=== PATIENT | male | born 1995 | race Two or more races ===

== ENCOUNTER 2019-08-01 23:48 | Emergency (ER) | payer BC ==
[~2019-08-01] VITALS: Ht 170.2 cm; Wt 56.7 kg
[2019-08-02 00:15] LABS: Basophils # (auto) 0.1 uL; Basophils % (auto) 1.5 % (0.0-2.0); Eosinophils # (auto) 0.1 uL; Eosinophils % (auto) 1.2 % (0.0-7.0); Hematocrit 45.5 % (41.0-53.0); Hemoglobin 15.8 g/dL (13.5-17.5); Lymphocytes # (auto) 1.5 uL; Lymphocytes % (auto) 24.1 % (10.0-50.0); Mean Corpuscular Hemoglobin 32.9 pg (28.0-32.0); Mean Corpuscular Hgb Conc. 34.7 g/dL (32.0-36.0); Mean Corpuscular Volume 94.8 fL (80.0-100.0); Monocytes # (auto) 0.7 uL; Monocytes % (auto) 12.1 % (0.0-12.0); Neutrophils # (auto) 3.7 uL; Neutrophils % (auto) 61.1 % (37.0-80.0); Nucleated Red Blood Cells % 0.2 %; Platelet Count (auto) 270 10^3/uL (140-450); Red Cell Distribution Width 12.6 % (11.8-14.3); White Blood Cell 6.1 10^3/uL (4.4-10.8)
[2019-08-02] MEDS ORDERED: SODIUM CHLORIDE 0.9% 1,000 ML IV ONE ×2 (00:30→02:30)
[2019-08-02 00:31] LABS: Anion Gap 6 (5-15); Blood Urea Nitrogen 19 mg/dL (7-18); Carbon Dioxide 27 mmol/L (21-32); Chloride 105 mmol/L (98-107); Glucose 101 mg/dL (74-106); Potassium 3.5 mmol/L (3.5-5.1); Sodium 138 mmol/L (136-145)
[2019-08-02 00:32] LABS: Alanine Aminotransferase 17 U/L (16-61); Albumin 4.5 g/dL (3.4-5.0); Aspartate Aminotransferase 16 U/L (15-37); Blood Alcohol < 3.0 mg/dL (0-5); Calcium 8.8 mg/dL (8.5-10.1); GFR African American 104 mL/min; GFR Non-African American 86 mL/min; Salicylate < 1.7 mg/dL (2.8-20.0)
[2019-08-02 00:33] LABS: Alkaline Phosphatase 64 U/L (45-117); Bilirubin, Total 0.7 mg/dL (0.2-1.0); Total Protein 8.2 g/dL (6.4-8.2)
[2019-08-02 00:49] LABS: Acetaminophen < 2.0 ug/mL (10-30)
[2019-08-02 01:50] LABS: Urine WBC None Seen /hpf (0 - 3)
[2019-08-02 02:10] LABS: Urine Bacteria NONE SEEN /hpf (None Seen); Urine Blood Negative /uL (Negative); Urine Specific Gravity 1.002 (1.001-1.035)
[2019-08-02 02:18] LABS: Alcohol, Urine < 3.0 mg/dL (0-5); Amphetamine Screen, Urine NEGATIVE (NEGATIVE); Barbiturate Scree,Urine NEGATIVE (NEGATIVE); Benzodiazephine Screen, Urine NEGATIVE (NEGATIVE); Cannabinoid Screen, Urine NEGATIVE (NEGATIVE); Cocaine Screen, Urine NEGATIVE (NEGATIVE); Opiate Scree,Urine NEGATIVE (NEGATIVE); Phencyclidine Screen, Urine NEGATIVE (NEGATIVE)
[2019-08-02] MEDS ORDERED: ONDANSETRON HCL 4 MG/2 ML VIAL IV ONE (02:30)
[2019-08-02] MEDS ORDERED: hydrOXYzine 25 MG TAB or CAP PO PRN (06:15)
[2019-08-02 09:22] VITALS: BP 119/71
[2019-08-02] MEDS ORDERED: buPROPion HCL 100 MG TAB PO SCH (10:00)
== END 2019-08-02 09:54 | disposition short-term general hospital (02) ==
LOC: ER 23:50
DX: R45.851 Suicidal ideations (principal); F32.9 Major depressive disorder, single episode, unspecified; F41.9 Anxiety disorder, unspecified; F12.10 Cannabis abuse, uncomplicated
CPT/HCPCS: 36415; 80053; 80307; 80320; 80329; 81001; 85025; 93005; 96374; 99285; J2405; J7030

== ENCOUNTER 2025-04-15 10:50 | Emergency (ER) | payer BC, MEDICAID ==
[~2025-04-15] VITALS: Ht 170.2 cm; Wt 67.7 kg
[2025-04-15 11:00] VITALS: TEMP 98.7; O2SAT 96
[2025-04-15] MEDS: KETOROLAC TROMETH 30 MG/ML 1ML VIAL IV ONE (11:16)
--- NOTE | 2025-04-15 11:20 | ED.PDOC ---
General HPI Comments 30 y.o male presents to the ED for a chief complaint of left sided flank pain that started this morning upon waking up. Patient describes pain as sharp, radiates to his lower abdomen and is constant with no alleviating factors. Patient denies any past hx of kidney stones, UTI's, nausea, vomiting, diarrhea, chills, dysuria, or hematuria. No medical history reported. Chief Complaint: Flank Pain Time Seen by MD: 11:03 Reviewed notes: Nurses Notes, Medications, Allergies Allergies: Coded Allergies: NO KNOWN ALLERGIES (Unverified , 08/01/19) Information Source: Patient Mode of Arrival: Ambulatory Severity: Moderate Timing: Hours Duration: Since onset Onset: Spontaneous Symptoms: None Location: (L)Flank associated signs and symptoms: Flank Pain Past Medical History PAST MEDICAL HISTORY: Anxiety, Depression Surgical History: Denies all surgeries Family History Family History: Unknown Social History Smoker: Non-Smoker Alcohol: Denies ETOH Use Drugs: Marijuana Lives In: Home Constitutional: denies: chills, diaphoresis, fatigue, fever, malaise, sweats, weakness, others EENTM: denies: blurred vision, double vision, ear bleeding, ear discharge, ear drainage, ear pain, ear ringing, eye pain, eye redness, hearing loss, mouth pain, mouth swelling, nasal discharge, nose bleeding, nose congestion, nose pain, photophobia, tearing, throat pain, throat swelling, voice changes, others Respiratory: denies: cough, hemoptysis, orthopnea, SOB at rest, shortness of breath, SOB with excertion, stridor, wheezing, others Cardiovascular: denies: chest pain, dizzy spells, diaphoresis, Dyspnea on exertion, edema, irregular heart beat, left arm pain, lightheadedness, palpitations, PND, syncope, others Gastrointestinal: denies: abdomen distended, abdominal pain, blood streaked bowels, constipated, diarrhea, dysphagia, difficulty swallowing, hematemesis, melena, nausea, poor appetite, poor fluid intake, rectal bleeding, rectal pain, vomiting, others Genitourinary: reports: flank pain; denies: burning, dysuria, frequency, hematuria, incontinence, penile discharge, penile sore, pain, testicle pain, testicle swelling, urgency, others Neurological: denies: dizziness, fainting, headache, left sided numbness, left sided weakness, numbness, paresthesia, pre-existing deficit, right sided numbness, right sided weakness, seizure, speech problems, tingling, tremors, weakness, others Musculoskeletal: denies: back pain, gout, joint pain, joint swelling, muscle pain, muscle stiffness, neck pain, others Integumetry: denies: bruises, change in color, change in hair/nails, dryness, laceration, lesions, lumps, rash, wounds, others Allergic/Immunocompromised: denies: Difficulty Healing, Frequent Infections, Hives, Itching, others Hematologic/Lymphatic: denies: anemia, blood clots, easy bleeding, easy bruising, swollen glands, others Endocrine: denies: excessive hunger, excessive sweating, excessive thirst, excessive urination, flushing, intolerance to cold, intolerance to heat, unexplained weight gain, unexplained weight loss, others Psychiatric: denies: anxiety, bipolar disorder, depression, hopeless, panic disorder, schizophrenia, sleepless, suicidal, others All Other Systems: Reviewed and Negative Physical Exam General Appearance: Moderate Distress HEENT: Normal ENT Inspection, Pharynx Normal, TMs Normal Neck: Full Range of Motion, Non-Tender, Normal, Normal Inspection Respiratory: Chest Non-Tender, Lungs Clear, No Accessory Muscle Use, No Respiratory Distress, Normal Breath Sounds Cardiovascular: No Edema, No JVD, No Murmur, No Gallop, Normal Peripheral Pulses, Regular Rate/Rhythm Breast Exam: Deferred Gastrointestinal: Diffuse, No Organomegaly, No Pulsatile Mass, Normal Bowel Sounds, Soft Genitalia: Deferred Pelvic: Deferred Rectal: Deferred Extremities: No calf tenderness, Normal capillary refill, Normal inspection, Normal range of motion, Non-tender, No pedal edema Musculoskeletal : Apperance: Normal Neurologic: Alert, 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 Was a procedure done?: No Differential Diagnosis Kidney stone (Female): N/A Kidney stone (Male): Pancreatitis, Pyelonephritis, Renal failure, Strain, Urolithiasis X-Ray, Labs, Meds, VS Vital Signs Date Time Temp Pulse Resp B/P (MAP) Pulse Ox O2 Delivery O2 Flow Rate FiO2 04/15/25 13:07 94 14 114/76 04/15/25 11:00 98.7 79 16 113/75 (88) 96 98.7 04/15/25 11:00 79 16 96 Room Air 04/15/25 10:51 98.9 96 15 138/85 97 98.9 Lab Test 04/15/25 11:44 04/15/25 11:11 Range/Units White Blood Count 11.3 H 4.4-10.8 10^3/uL Red Blood Count 4.39 L 4.5-5.90 10^6/uL Hemoglobin 13.6 13.5-17.5 g/dL Hematocrit 40.8 L 41.0-53.0 % Mean Corpuscular Volume 92.9 80.0-100.0 fL Mean Corpuscular Hemoglobin 31.0 28.0-32.0 pg Mean Corpuscular Hemoglobin Concent 33.4 32.0-36.0 g/dL Red Cell Distribution Width 12.6 11.8-14.3 % Platelet Count 299 140-450 10^3/uL Mean Platelet Volume 6.9 6.9-10.8 fL Neutrophils (%) (Auto) 79.0 37.0-80.0 % Lymphocytes (%) (Auto) 13.5 10.0-50.0 % Monocytes (%) (Auto) 6.2 0.0-12.0 % Eosinophils (%) (Auto) 0.7 0.0-7.0 % Basophils (%) (Auto) 0.6 0.0-2.0 % Neutrophils # (Auto) 8.9 H 1.6-8.6 10 ^3/uL Lymphocytes # (Auto) 1.5 0.4-5.4 10 ^3/uL Monocytes # (Auto) 0.7 0-1.3 10 ^3/uL Eosinophils # (Auto) 0.1 0-0.8 10 ^3/uL Basophils # (Auto) 0.1 0-0.2 10 ^3/uL Nucleated Red Blood Cells 0.0 % Sodium Level 139 136-145 mmol/L Potassium Level 3.5 3.5-5.1 mmol/L Chloride Level 105 98-107 mmol/L Carbon Dioxide Level 26 20-31 mmol/L Anion Gap 8 5-15 Blood Urea Nitrogen 12 9-23 mg/dL Creatinine 1.03 0.700-1.30 mg/dL Glomerular Filtration Rate Calc 100 >90 mL/min BUN/Creatinine Ratio 11.7 10.0-20.0 Serum Glucose 118 H 74-106 mg/dL Calcium Level 8.2 L 8.7-10.4 mg/dL Urine Color Light-yellow Yellow Urine Clarity Clear Clear Urine pH 6.5 5.0-9.0 Urine Specific [place] 1.018 1.001-1.035 Urine Protein Negative Negative Urine Ketones Negative Negative Urine Blood 3+ H Negative /uL Urine Nitrite Negative Negative Urine Bilirubin Negative Negative Urine Urobilinogen Normal Negative mg/dL Urine Leukocyte Esterase Negative Negative /uL Urine RBC 158 0 - 3 /hpf Urine Microscopic WBC 1 0-3 /HPF Urine Squamous Epithelial Cells Few <5 /hpf Urine Bacteria None seen None Seen /hpf Urine Glucose Normal Normal mg/dL Current Medications Medications (Trade) Dose Ordered Sig/Lee Route Start Time Stop Time Status Last Admin Ketorolac Tromethamine (Toradol Injection) 30 mg ONCE ONCE IV 04/15/25 11:15 04/15/25 11:16 DC 04/15/25 11:16 Sodium Chloride 1,000 ml @ 1,000 mls/hr Q1H ONCE IV 04/15/25 11:15 04/15/25 12:14 DC 04/15/25 11:21 Ondansetron HCl (Zofran) 4 mg ONCE ONCE IV 04/15/25 13:00 04/15/25 13:01 DC 04/15/25 13:07 Morphine Sulfate 4 mg ONCE ONCE IV 04/15/25 13:00 04/15/25 13:01 DC 04/15/25 13:07 Patient alert. Complaining of flank pain. Vitals stable. Answering questions. Urinalysis shows blood. CT scan of the abdomen does show a kidney stone. Establish intravenous access. Was given fluids. Was given pain medication. Was given Flomax. Was given Zofran. Was given Lasix. Was given prescription of Flomax Motrin. Explained to the patient. Was told to follow up with his primary care physician. Was told to come back if there is any problem. Time of 1ST Reevaluation: 11:20 Reevaluation 1ST: Unchanged Patient Education/Counseling: Diagnosis, Treatment, Prognosis Family Education/Counseling: No Family Present SEPSIS Sepsis Screen Date sepsis recognized/suspect: Apr 15, 2025 Time Sepsis recognized/suspect: 1053 Recent Procedure: No On Antibiotic Therapy: No Respiratory Rate >20: No Heart Rate >90: No Temp<36 C (96.8 F) or >38.3 C: No SBP <90 or MAP <65 mmHG: No New Acute Mental Status Change: No Is the patient on CPAP, BIPAP,: No Physician Orders Ct Ab Pel Wo Con-No Oral Or Iv (04/15/25 12:32) Furosemide Injection (Lasix Injection) (04/15/25 13:45) Tamsulosin Hydrochloride (Flomax) (04/15/25 13:45) Vital Signs Date Time Temp Pulse Resp B/P (MAP) Pulse Ox O2 Delivery O2 Flow Rate FiO2 04/15/25 13:07 94 14 114/76 04/15/25 11:00 98.7 79 16 113/75 (88) 96 98.7 04/15/25 11:00 79 16 96 Room Air 04/15/25 10:51 98.9 96 15 138/85 97 98.9 Laboratory Tests Test 04/15/25 11:44 White Blood Count 11.3 10^3/uL (4.4-10.8) H Medications Medications Dose Ordered Sig/Lee Route Start Time Stop Time Status Last Admin Dose Admin Ketorolac Tromethamine 30 mg ONCE ONCE IV 04/15/25 11:15 04/15/25 11:16 DC 04/15/25 11:16 Morphine Sulfate 4 mg ONCE ONCE IV 04/15/25 13:00 04/15/25 13:01 DC 04/15/25 13:07 Ondansetron HCl 4 mg ONCE ONCE IV 04/15/25 13:00 04/15/25 13:01 DC 04/15/25 13:07 Sodium Chloride 1,000 ml @ 1,000 mls/hr Q1H ONCE IV 04/15/25 11:15 04/15/25 12:14 DC 04/15/25 11:21 Departure 1 Departure Time of Disposition: 13:36 Impression: Primary Impression: Kidney stone Disposition: 01 HOME / SELF CARE / HOMELESS Condition: Good e-Prescriptions Ibuprofen Micronized (MOTRIN TABLET) 600 Mg Tb 600 MG PO TID PRN for 5 Days, #15 TAB *Black box warning-NSAIDS can increase risk of IN & hypertension, GI irritation, ulceration, bleed, perferation. Do not use post cardiac surgery. Use short duration/lowest effective dose. Prov: REMI MAI MD 04/15/25 Tamsulosin Hcl (Flomax) 0.4 Mg Cap 1 CAP PO DAILY for 7 Days, #7 CAP 11 Refills Prov: REMI MAI MD 04/15/25 Discharged With: Self Critical Care Note Critical Care Time?: No Stability Stability form required: No I personally scribed for REMI MAI MD ([email or web address]) on 04/15/25 at 11:20. Electronically submitted by Olena Rios ([facility]). REMI MAI MD Apr 15, 2025 11:20
[2025-04-15] MEDS: SODIUM CHLORIDE 0.9% 1,000 ML IV ONE (11:21)
[2025-04-15 12:01] LABS: Urine Protein, UAD Negative (Negative)
[2025-04-15 12:21] LABS: Hematocrit 40.8 % (41.0-53.0); Hemoglobin 13.6 g/dL (13.5-17.5); Mean Corpuscular Hemoglobin 31.0 pg (28.0-32.0); Mean Corpuscular Volume 92.9 fL (80.0-100.0); Nucleated Red Blood Cells % 0.0 %
[2025-04-15 12:31] LABS: Chloride 105 mmol/L (98-107); Sodium 139 mmol/L (136-145)
[2025-04-15 12:32] LABS: Anion Gap 8 (5-15); Carbon Dioxide 26 mmol/L (20-31)
[2025-04-15 12:38] LABS: BUN/Creatinine Ratio 11.7 (10.0-20.0); Blood Urea Nitrogen 12 mg/dL (9-23); Calcium 8.2 mg/dL (8.7-10.4); Glucose 118 mg/dL (74-106); Potassium 3.5 mmol/L (3.5-5.1)
[2025-04-15 13:07] VITALS: BP 114/76; PULSE 94; RESP 14
[2025-04-15] MEDS: ONDANSETRON HCL 4 MG/2 ML VIAL IV ONE (13:07)
[2025-04-15] MEDS: MORPHINE SULFATE 4 MG/ML SYR/VIAL IV ONE (13:07)
--- NOTE | 2025-04-15 13:12 | DVH ---
Exam: CT CT AB PEL WO CON-NO ORAL OR IV History: stone Comparison Study: None Technique: Multidetector spiral CT of the abdomen was performed from lung bases to pubic symphysis. Imaging was performed without IV contrast. Axial, coronal and sagittal multiplanar reformats were ob tained from the axial data set by the technologist. Radiation Dose : 1. Abdomen/Pelvis: CTDIvol 5.6 mGy, DLP 5.6 mGy*cm. Findings: Evaluation of solid organs is limited due to lack of intravenous contrast use. Lung Bases: No acute or significant lung base finding. Normal heart size. No pleural or pericardial effusion. Liver: The liver is normal in size. No focal lesions. Gallbladder and Biliary Tree: Unremarkable Spleen: Unremarkable Pancreas: The pancreas is grossly normal in appearance. Adrenal Glands: Unremarkable Kidneys: Tiny 1 mm stone is seen in the lower pole of the right kidney. No hydronephrosis. Bladder: Grossly unremarkable for degree of distention. Bowel: The stomach is grossly normal in appearance. Small bowel and colon are normal in caliber and d istribution. Normal appendix is visualized in the right lower quadrant without findings of appendici tis. Ascites: Absent Lymphadenopathy: No mesenteric, retroperitoneal or periportal lymphadenopathy. Abdominal Wall and Mesentery: Unremarkable. Vasculature: The visualized abdominal aorta is normal in size and caliber. Evaluation of abdominal a nd pelvic vessels is limited due to lack of intravenous contrast. Pelvic Organs: Unremarkable Musculoskeletal: No aggressive focal bony lesions, acute fractures or dislocation. IMPRESSION: 1. Tiny 1 mm stone is seen in the lower pole of the right kidney. No hydronephrosis. Radiation optimization: All CT scans at this facility use at least one of these dose optimization kalpana hniques: automated exposure control mA and/or kV adjustment per patient size (includes targeted exam s where dose is matched to clinical indication) or iterative reconstruction.
[2025-04-15] MEDS ORDERED: IBU600T PO (13:37)
[2025-04-15] MEDS ORDERED: TAMS-35 PO (13:37)
[2025-04-15] MEDS: TAMSULOSIN HYDROCHLORIDE 0.4 MG CAP PO ONE (13:49)
[2025-04-15] MEDS: FUROSEMIDE 40 MG/4 ML VIAL IV ONE (13:50)
== END 2025-04-15 13:51 | disposition home or self-care (01) ==
LOC: ER 10:50
DX: N20.0 Calculus of kidney (principal)
CPT/HCPCS: 36415; 74176; 80048; 81001; 85025; 96361; 96374; 96375; 99285; J1885; J2270; J2405; J7030